=== PATIENT | female | born 1940 | race Caucasian/White ===

== ENCOUNTER 2016-08-31 12:35 | Observation (INO) | payer MEDICARE, OTHER ==
[~2016-08-31] VITALS: Ht 165.1 cm; Wt 75.8 kg
[2016-08-31 12:45] VITALS: BP 170/81
--- NOTE | 2016-08-31 12:45 | NUR ---
Patient admitted to room 316 ambulatory from [facility] in [place]. She denies pain at this time. Reports intermittent blood in her stool at home since . She is status post polypectomy- procedure done on August 27. She is non-tender to palpation of the abdomen and she reports a good appetite without incident of nausea.
[2016-08-31] MEDS ORDERED: SODIUM CHLORIDE FLUSH 10 ML ONE (13:02)
[2016-08-31 13:44] VITALS: BP 170/81
--- NOTE | 2016-08-31 14:33 | NUR ---
MED REC COMPLETED-current med list obtained from Ext Med History application and patient medication listing.
[2016-08-31] MEDS ORDERED: NS FLUSH 10 ML PRN IV (15:00)
[2016-08-31] MEDS ORDERED: NS FLUSH 3 ML PRN IV (15:00)
--- NOTE | 2016-08-31 15:00 | NUR ---
Patient continues to deny pain and nausea.
[2016-08-31 15:22] VITALS: BP 157/78
--- NOTE | 2016-08-31 16:30 | NUR ---
Denies any needs. Daughter has remained at the bedside since admission.
[2016-08-31 19:32] VITALS: BP 150/66
--- NOTE | 2016-08-31 20:00 | NUR ---
Patient resting in bed. Taking clear liquids without nausea. Denies any abdominal discomfort at this time. Visiting with daughter at this time. No concerns at this time. Call light within reach.
--- NOTE | 2016-09-01 | NUR ---
Awakened for vitals. Continues to rest well. No stools, or rectal bleeding. Call light within reach.
[2016-09-01 00:37] VITALS: BP 130/64
[2016-09-01 05:39] LABS: BASOPHILS % (AUTO) 1 % (0-2); EOSINOPHILS # (AUTO) 0.4 10^3uL; EOSINOPHILS % (AUTO) 7 % (0-4); LYMPHOCYTES # (AUTO) 1.6 X10^3; MEAN CORPUSCULAR HEMOGLOBIN 29.6 PG (26.0-34.0); MEAN CORPUSCULAR VOLUME 90 FL (80-100); MEAN PLATELET VOLUME 9.7 FL (6.0-9.5); MONOCYTES # (AUTO) 0.6 X10^3; MONOCYTES % (AUTO) 9 % (3-11); NEUTROPHILS # (AUTO) 3.5 X10^3; NEUTROPHILS % (AUTO) 56 % (51-67); PLATELET COUNT 298 10^3uL (150-450); WHITE BLOOD COUNT 6.25 10^3uL (4.0-11.0)
[2016-09-01 05:50] VITALS: BP 162/77
--- NOTE | 2016-09-01 06:03 | NUR ---
Rested at short intervals tonight. No stools or bleeding. Denies any discomforts this morning. Call light within reach.
[2016-09-01 07:34] VITALS: BP 159/81
[2016-09-01] MEDS ORDERED: NS FLUSH 3 ML DAILY IV SCH (09:00)
[2016-09-01 11:35] VITALS: BP 156/84
--- NOTE | 2016-09-01 12:00 | NUR ---
Patient has not had any rectal bleeding or stool this morning.
--- NOTE | 2016-09-01 13:10 | NUR ---
Gave the patient discharge instructions. Informed her no new scripts were issued for this visit and no medications were changed. Educated her that she could expect some rectal bleeding but to report any copious amounts of blood to Dr. Cook. Patient demonstrated verbal understanding.
--- NOTE | 2016-09-01 13:33 | NUR ---
Patient dismissed ambulatory accompanied by a INSTRUMENT [employer]SEMBLER and her daughter.
== END 2016-09-01 13:33 | disposition home or self-care (01) ==
LOC: MED/SURG 12:35
PROVIDERS: ADMIT Surgery; ATTEND Surgery
DX: K91.840 Postprocedural hemorrhage of a digestive system organ or structure following a digestive system procedure (principal); K62.5 Hemorrhage of anus and rectum; Y84.8 Other medical procedures as the cause of abnormal reaction of the patient, or of later complication, without mention of misadventure at the time of the procedure
CPT/HCPCS: 36415; 85025; G0378; 99218